=== PATIENT | female | born 1955 | race Caucasian/White ===

== ENCOUNTER 2020-06-26 11:54 | Emergency (ER) | payer OTHER ==
[~2020-06-26 11:54] MED LIST: ACID REDUCER20 MG PO; ARICEPT23 MG PO; AUGMENTIN 500-500 MG PO; BUTALBIT-ACETA1 EACH PO; CATAPRES 0.1MG0.1 MG PO; COREG25 MG PO; CRESTOR20 MG PO; DONEPEZIL HCL O10 MG PO; DOXEPIN HCL25 MG PO; ELIQUIS5 MG PO; ENOXAPARIN40 MG/0.4 SC; HYDRALAZINE HC100 MG PO; HYDROCHLOROTHIA25 MG PO; IBUPROFEN800 MG PO; IPRAT-ALBUT 0.5-3 ML NEB; ISORDIL TAB 2020 MG PO; K-DUR TAB 20 M20 MEQ PO; KLONOPIN0.5 MG PO; LASIX40 MG PO; LEVEMIR100 UNIT/1 SQ; LINZESS290 MCG PO; LIPITOR TAB 2020 MG PO; MEDROL4 MG PO; NEURONTIN800 MG PO; NORVASC10 MG PO; OMNICEF 300 MG300 MG PO; PAMELOR25 MG PO; PROTONIX20 MG PO; PULMICORT0.5 MG/2 M INH; SUBOXONE 8 MG-1 EACH SL; VENLAFAXINE H37.5 MG PO; VENTOLIN HFA 66.7 GM INH; VITAMIN D21250 MCG PO; WELLBUTRIN XL300 MG PO; ZANAFLEX 4 MG TA4 MG PO; ZANAFLEX2 MG PO; ZOFRAN 8 MG TAB8 MG PO
[2020-06-26 16:31] LABS: HEMOGLOBIN 12.9 gm/dl (12.3-15.3); WHITE BLOOD COUNT 6.1 K/UL (4.5-11.0)
[2020-06-26 16:49] LABS: BUN/CREATININE RATIO 21 (0-10)
== END 2020-06-26 18:15 | disposition home or self-care (01) ==
LOC: ER1 11:54
PROVIDERS: Physician Assistant Medical
DX: S09.90XA Unspecified injury of head, initial encounter (principal); S93.601A Unspecified sprain of right foot, initial encounter; S40.011A Contusion of right shoulder, initial encounter; M54.5 Low back pain; J44.9 Chronic obstructive pulmonary disease, unspecified; G89.29 Other chronic pain; F17.210 Nicotine dependence, cigarettes, uncomplicated; Z79.01 Long term (current) use of anticoagulants; W22.8XXA Striking against or struck by other objects, initial encounter
CPT/HCPCS: 36600; 70450; 71045; 73030; 73552; 73590; 73630; 80053; 80307; 81001; 82803; 85025; 85610; 85652; 86140; 99284

== ENCOUNTER 2021-02-02 15:19 | Inpatient (IN) | payer MEDICARE, OTHER ==
[~2021-02-02] VITALS: Ht 149.9 cm; Wt 59.9 kg
[~2021-02-02 15:19] MED LIST changes: -ACID REDUCER20 MG PO; +AMPICILLIN 500500 MG PO; -COREG25 MG PO; -CRESTOR20 MG PO; -PULMICORT0.5 MG/2 M INH
[2021-02-02 15:59] LABS: HEMOGLOBIN 12.8 gm/dl (12.3-15.3); RED BLOOD COUNT 4.82 M/UL (4.00-5.10); WHITE BLOOD COUNT 13.4 K/UL (4.5-11.0)
[2021-02-02 16:25] LABS: BUN/CREATININE RATIO 24 (0-10)
[2021-02-03 02:04] LABS: RED BLOOD COUNT 4.49 M/UL (4.00-5.10); WHITE BLOOD COUNT 11.8 K/UL (4.5-11.0)
[2021-02-03 02:25] LABS: BUN/CREATININE RATIO 28 (0-10)
[2021-02-03] MEDS ORDERED: NEURONTIN800 MG PO (07:23)
[2021-02-03] MEDS ORDERED: PROAIR HFA8.5 GM INH (07:26)
[2021-02-03] MEDS ORDERED: ELIQUIS5 MG PO (07:26)
[2021-02-03] MEDS ORDERED: ASPIRIN EC81 MG PO (07:27)
[2021-02-03] MEDS ORDERED: WELLBUTRIN XL300 M1 PO (07:28)
[2021-02-03] MEDS ORDERED: CALCIUM 500 +1 EAC3 PO (07:28)
[2021-02-03] MEDS ORDERED: VOLTAREN ARTHRI20 GM TOP (07:30)
[2021-02-03] MEDS ORDERED: DOXEPIN HCL25 MG PO (07:30)
[2021-02-03] MEDS ORDERED: PROZAC20 MG PO (07:31)
[2021-02-03] MEDS ORDERED: LASIX20 MG PO (07:31)
[2021-02-03] MEDS ORDERED: IBUPROFEN800 MG PO (07:32)
[2021-02-03] MEDS ORDERED: LACTULOSE10 GM/15 M PO (07:32)
[2021-02-03] MEDS ORDERED: HYDROCHLOROTHIA25 MG PO (07:32)
[2021-02-03] MEDS ORDERED: ZESTORETIC 10-1 EACH PO (07:33)
[2021-02-03] MEDS ORDERED: ZANAFLEX4 MG PO (07:34)
[2021-02-03] MEDS ORDERED: KLOR-CON M2020 MEQ PO (07:34)
[2021-02-03] MEDS ORDERED: DRISDOL1250 MCG PO (07:35)
[2021-02-03] MEDS ORDERED: SYMBICORT 80-41 INHA INH (14:14)
[2021-02-03] MEDS ORDERED: LOPRESSOR 25 MG25 MG PO (14:14)
[2021-02-03] MEDS ORDERED: PROTONIX20 MG PO (14:19)
[2021-02-03] MEDS ORDERED: LIPITOR20 MG PO (14:20)
[2021-02-04 02:35] LABS: RED BLOOD COUNT 4.2 M/UL (4.00-5.10)
[2021-02-04 02:37] LABS: WHITE BLOOD COUNT 5.3 K/UL (4.5-11.0)
[2021-02-04 03:24] LABS: BUN/CREATININE RATIO 28 (0-10)
--- NOTE | 2021-02-04 04:34 | NUR ---
AT 2340 PTTHP CAME BACK FOR HEPARIN GTT AT 28. WENT TO PULL HEPARIN BOLUS AND WHEN ACCESSED OMNICELL NO BOLUS OR PROTOCOL WAS FOUND. LOOKED ON [facility] AND SEEN THAT HEPARIN GTT WAS D/C OF 2 PM ON THE . DRIP WAS TURNED OFF AND DISCONNECTED FROM PATIENT. AT APPROXIMATELY 0400 LOOKIGN THROUGH CHART AND CONSULTATION NOTES FROM CARDIO AND WAS SAID IN NOTE THAT PATIENT WOULD CONTINUE ON HEPARIN GTT FOR AT LEAST 24 MORE HOURS. NO NOTES INDICATED ANYWHERE WHO DISCONTINUED THE GTT. CALLED PHARMACY AT THIS TIME TO HAVE THEM SECOND VERIFY TO SEE IF THEY KNEW OR COULD SEE WHY DRIP WAS D/C. PHARMACY COULD NOT TELL THAT THERE WAS A REASON THAT IT WAS D/C; PHARMACY SUGGESTED MAYBE THE ORDER HAD FELL OFF BECAUSE IT WAS A ER ORDER AND DIDNT CROSS OVER APPROPRIATELY TO THE FLOOR ORDERS. PHARMACY NEEDED CLARIFICATION FROM MD THAT GTT WAS SUPPOSED TO BE ORDERED REGARDLESS. [facility] WAS CONTACTED AT 0408 FOR CLARIFICATION. MD STATES SHE WANTED GTT TO BE CONTINUED AT THIS TIME AND WILL D/C WHEN MD COMES TO SEE PATIENT IN AM. AFTER ORDER WAS REENTERED INTO COMPUTER PHARMACY WAS CALLED AND SUGGESTED TO GIVE BOLUS PER PTTHP FROM LAB DRAW FROM 2340 AND START GTT AT WHAT GTT WAS GOING TO BE INCREASED TO PER PROTOCOL. LAB FOR PTTHP WAS REENTERED FROM 6 HOURS FROM BOLUS DOSE GIVEN.
[2021-02-04 10:11] LABS: HBSAG SCREEN Negative (Negative); HEP A AB, IGM Negative (Negative); HEP B CORE AB, IGM Negative (Negative); HEP C VIRUS AB 0.1 (0.0-0.9)
[2021-02-05 02:56] LABS: HEMOGLOBIN 10.7 gm/dl (12.3-15.3); RED BLOOD COUNT 4.02 M/UL (4.00-5.10); WHITE BLOOD COUNT 5.9 K/UL (4.5-11.0)
[2021-02-05 03:25] LABS: BUN/CREATININE RATIO 19 (0-10)
[2021-02-06 02:30] LABS: RED BLOOD COUNT 4.2 M/UL (4.00-5.10)
[2021-02-06 02:59] LABS: BUN/CREATININE RATIO 14 (0-10)
== END 2021-02-06 12:55 | disposition home or self-care (01) | DRG 280 ==
LOC: ER1 15:19 → CDU 19:13 → PROG CARE 20:55
PROVIDERS: Emergency Medicine; ADMIT Internal Medicine Infectious Disease
PROC: 5A09357 Assistance with Respiratory Ventilation, Less than 24 Consecutive Hours, Continuous Positive Airway Pressure (ICD-10-PCS; 2021-02-02)
PROC: B24BZZZ Ultrasonography of Heart with Aorta (ICD-10-PCS; principal; 2021-02-03)
DX: I11.0 Hypertensive heart disease with heart failure (principal); I21.A1 Myocardial infarction type 2; J96.21 Acute and chronic respiratory failure with hypoxia; Z20.822 Contact with and (suspected) exposure to COVID-19; G92.9 Unspecified toxic encephalopathy; I50.43 Acute on chronic combined systolic (congestive) and diastolic (congestive) heart failure; J69.0 Pneumonitis due to inhalation of food and vomit; N17.9 Acute kidney failure, unspecified; T40.605A Adverse effect of unspecified narcotics, initial encounter; I95.2 Hypotension due to drugs; E78.5 Hyperlipidemia, unspecified; T42.4X5A Adverse effect of benzodiazepines, initial encounter; I07.1 Rheumatic tricuspid insufficiency; J44.9 Chronic obstructive pulmonary disease, unspecified; I48.0 Paroxysmal atrial fibrillation; F17.210 Nicotine dependence, cigarettes, uncomplicated; I27.20 Pulmonary hypertension, unspecified; R74.01 Elevation of levels of liver transaminase levels; Z79.01 Long term (current) use of anticoagulants; Z79.82 Long term (current) use of aspirin; Z93.0 Tracheostomy status; Z93.1 Gastrostomy status; Z80.9 Family history of malignant neoplasm, unspecified; Z99.81 Dependence on supplemental oxygen; Z87.01 Personal history of pneumonia (recurrent)
CPT/HCPCS: ECHO; 36415; 36600; 70450; 71045; 71250; 80053; 80074; 80307; 81001; 82140; 82550; 82553; 82803; 83605; 83690; 83735; 83874; 83880; 84439; 84443; 84484; 85025; 85610; 85730; 86140; 87040; 93005; 93017; 93306; 94760; 96374; 97116-GP-CQ; 97162; 97530-GP-CQ; 99285; G0480; J1250; J1644; J1940; J2785; P9047; U0002

== ENCOUNTER 2021-09-28 19:28 | Emergency (ER) | payer MEDICARE, OTHER ==
[~2021-09-28 19:28] MED LIST changes: +ASPIRIN EC81 MG PO; +CALCIUM 500 +1 EAC3 PO; +DRISDOL1250 MCG PO; +KLOR-CON M2020 MEQ PO; +LACTULOSE10 GM/15 M PO; +LASIX20 MG PO; +LIPITOR20 MG PO; +LOPRESSOR 25 MG25 MG PO; +PROAIR HFA8.5 GM INH; +PROZAC20 MG PO; +SYMBICORT 80-41 INHA INH; +VOLTAREN ARTHRI20 GM TOP; +WELLBUTRIN XL300 M1 PO; +ZANAFLEX4 MG PO; +ZESTORETIC 10-1 EACH PO
[2021-09-28 20:17] LABS: HEMOGLOBIN 11.1 gm/dl (12.3-15.3); RED BLOOD COUNT 4.97 M/UL (4.00-5.10); WHITE BLOOD COUNT 10.1 K/UL (4.5-11.0)
== END 2021-09-28 22:05 | disposition left against medical advice (07) ==
LOC: ER1 19:28
PROVIDERS: Preventive Medicine Occupational Medicine
DX: R41.0 Disorientation, unspecified (principal)
CPT/HCPCS: 71045; 80053; 85025; 93005; 99281